=== PATIENT | male | born 1985 | race African-American/Black ===

== ENCOUNTER 2019-10-20 18:28 | Emergency (ER) | payer OTHER ==
[~2019-10-20] VITALS: Ht 190.5 cm; Wt 113.4 kg
[2019-10-20 18:40] VITALS: BP 118/82
[2019-10-20] MEDS ORDERED: Tylenol #3 tab (300mg/30mg) ORAL ONE (19:00)
[2019-10-20] MEDS ORDERED: Methocarbamol 750mg tab ORAL ONE (19:00)
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
[2019-10-20] MEDS ORDERED: ACETAMINOPHEN-1 EAC1 ORAL (19:57)
[2019-10-20] MEDS ORDERED: IBUPROFEN600 M1 ORAL (19:57)
[2019-10-20] MEDS ORDERED: ROBAXIN-500MG ORAL (19:57)
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
[2019-10-20 20:50] VITALS: BP 125/78
[2019-10-20 20:54] LABS: BASOPHILS % (AUTO) 1.9 % (0.0-2.0); EOSINOPHILS % (AUTO) 3.2 % (0.0-3.0); HEMATOCRIT 46.5 % (42.0-52.0); HEMOGLOBIN 14.1 G/DL (14.2-18.0); LYMPHOCYTES % (AUTO) 36.4 % (20.0-45.0); MEAN CORPUSCULAR VOLUME 94 FL (80-99); MONOCYTES % (AUTO) 6.3 % (1.0-10.0); NEUTROPHILS % (AUTO) 52.3 % (45.0-75.0); PLATELET COUNT 310 K/UL (150-450); RED BLOOD COUNT 4.95 M/UL (4.70-6.10); RED CELL DISTRIBUTION WIDTH 13.3 % (11.6-14.8); WHITE BLOOD COUNT 8.9 K/UL (4.8-10.8)
[2019-10-20 20:55] LABS: ANION GAP 8 mmol/L (5-15); BLOOD UREA NITROGEN 19 mg/dL (7-18); CALCIUM 9.4 MG/DL (8.5-10.1); CARBON DIOXIDE 27 MMOL/L (21-32); CHLORIDE 103 MMOL/L (98-107); CREATININE 1.8 MG/DL (0.55-1.30); POTASSIUM 4.1 MMOL/L (3.5-5.1); SODIUM 138 MMOL/L (136-145)
[2019-10-20 21:00] LABS: ALANINE AMINOTRANSFERASE 45 U/L (12-78); ALBUMIN 4.3 G/DL (3.4-5.0); ALBUMIN/GLOBULIN RATIO 1.1 (1.0-2.7); ALKALINE PHOSPHATASE 76 U/L (46-116); ASPARTATE AMINO TRANSFERASE 24 U/L (15-37); BILIRUBIN,TOTAL 0.4 MG/DL (0.2-1.0)
[2019-10-20] MEDS ORDERED: traMADol 50mg tab ORAL ONE (21:00)
[2019-10-20] MEDS ORDERED: Ketorolac 30mg Inj IM ONE (21:00)
[2019-10-20] MEDS ORDERED: Ketorolac 30mg Inj ONE (21:02)
[2019-10-20] MEDS ORDERED: traMADol 50mg tab ONE (21:02)
[2019-10-20 22:38] VITALS: BP 120/85
[2019-10-21 01:10] VITALS: BP 121/82
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
== END 2019-10-21 01:10 | disposition short-term general hospital (02) ==
LOC: EMR 19:00
DX: S16.1XXA Strain of muscle, fascia and tendon at neck level, initial encounter (principal); S43.422A Sprain of left rotator cuff capsule, initial encounter; S39.012A Strain of muscle, fascia and tendon of lower back, initial encounter; R53.1 Weakness; V43.52XA Car driver injured in collision with other type car in traffic accident, initial encounter; Y92.411 Interstate highway as the place of occurrence of the external cause; Z88.1 Allergy status to other antibiotic agents; Z88.6 Allergy status to analgesic agent
CPT/HCPCS: 36415; 72125; 72128; 72131; 73110; 73130; 80053; 85025; 96372; 99284; J1885; U0002